=== PATIENT | female | born 1975 | race Caucasian/White ===

== ENCOUNTER → 2016-11-03 | Outpatient (CLI) | payer BC | LOC: LAB 11:38 | DX: E03.9 Hypothyroidism, unspecified (principal); M25.571 Pain in right ankle and joints of right foot ==

== ENCOUNTER → 2016-11-24 | Outpatient (CLI) | payer BC | LOC: MAMMO 13:26 | DX: Z12.31 Encounter for screening mammogram for malignant neoplasm of breast (principal) | CPT/HCPCS: G0202 ==

== ENCOUNTER → 2017-12-23 | Outpatient (CLI) | payer BC | LOC: LAB 09:56 | DX: E03.4 Atrophy of thyroid (acquired) (principal) ==

== ENCOUNTER → 2018-03-31 | Outpatient (CLI) | payer BC | LOC: LAB 15:25 | DX: E03.4 Atrophy of thyroid (acquired) (principal) ==

== ENCOUNTER → 2018-07-14 | Outpatient (CLI) | payer BC | LOC: LAB 14:37 | PROVIDERS: Physician Assistant | DX: E03.4 Atrophy of thyroid (acquired) (principal) ==

== ENCOUNTER → 2018-07-26 | Outpatient (CLI) | payer BC | LOC: MAMMO 09:15 | DX: Z12.31 Encounter for screening mammogram for malignant neoplasm of breast (principal) ==

== ENCOUNTER → 2019-04-02 | Outpatient (CLI) | payer BC ==
[2019-04-02 08:20] LABS: EOS # 0.1 (0.04-0.40); EOS % 1.5 % (1.0-5.0); HEMATOCRIT 40.9 % (37.0-47.0); HEMOGLOBIN 13.3 g/dL (12.5-16.0); LYMPH# 3.1 (1.50-4.00); MEAN CELL VOLUME 85 fl (78-100); MEAN CORPUSCULAR HEMOGLOBIN 28 pg (27-31); MEAN CORPUSCULAR HGB CONC 33 g/dL (33-37); MEAN PLATELET VOLUME 9.3 fl (7.4-10.4); MONO # 0.7 (0.20-0.80); NEU # 4.8 (1.40-6.50); PLATELET COUNT 399 K/mm3 (130-400); RED BLOOD COUNT 4.81 M/mm3 (4.10-5.30); RED CELL DISTRIBUTION WIDTH 13.4 % (11.5-14.5); WHITE BLOOD COUNT 8.7 K/mm3 (4.8-10.8)
[2019-04-02 09:18] LABS: ALBUMIN 3.6 g/dL (3.5-5.0); CALCIUM 9.3 mg/dL (8.3-10.5); POTASSIUM 4.3 mmol/L (3.5-5.1); TOTAL BILIRUBIN 0.2 mg/dL (0.2-1.2); TOTAL PROTEIN 7.1 g/dL (6.4-8.3)
== END ==
LOC: LAB 08:09
PROVIDERS: Physician Assistant
DX: Z00.00 Encounter for general adult medical examination without abnormal findings (principal); Z12.31 Encounter for screening mammogram for malignant neoplasm of breast; J01.80 Other acute sinusitis; B96.89 Other specified bacterial agents as the cause of diseases classified elsewhere; H66.91 Otitis media, unspecified, right ear; M25.512 Pain in left shoulder; M25.531 Pain in right wrist; E03.9 Hypothyroidism, unspecified

== ENCOUNTER → 2020-06-18 | Outpatient (CLI) | payer BC ==
[2020-06-18 10:43] LABS: EOS # 0.1 (0.04-0.40); EOS % 0.9 % (1.0-5.0); HEMATOCRIT 38.8 % (37.0-47.0); HEMOGLOBIN 12.8 g/dL (12.5-16.0); LYMPH# 2.7 (1.50-4.00); MEAN CELL VOLUME 87 fl (78-100); MEAN CORPUSCULAR HEMOGLOBIN 29 pg (27-31); MEAN CORPUSCULAR HGB CONC 33 g/dL (33-37); MEAN PLATELET VOLUME 9.6 fl (7.4-10.4); MONO # 0.7 (0.20-0.80); NEU # 4.2 (1.40-6.50); PLATELET COUNT 307 K/mm3 (130-400); RED BLOOD COUNT 4.45 M/mm3 (4.10-5.30); WHITE BLOOD COUNT 7.6 K/mm3 (4.8-10.8)
[2020-06-18 10:59] LABS: POTASSIUM 4.2 mmol/L (3.5-5.1)
[2020-06-18 11:00] LABS: CALCIUM 8.8 mg/dL (8.3-10.5)
[2020-06-18 11:04] LABS: TOTAL BILIRUBIN 0.4 mg/dL (0.2-1.2)
[2020-06-19 04:26] LABS: FOLLICLE STIMULATING HORMONE 2.2 mIU/mL (()); LUTENIZING HORMONE 1.2 mIU/mL (())
== END ==
LOC: LAB 10:30
PROVIDERS: Physician Assistant
DX: Z00.00 Encounter for general adult medical examination without abnormal findings (principal); Z12.31 Encounter for screening mammogram for malignant neoplasm of breast; N92.6 Irregular menstruation, unspecified; E03.9 Hypothyroidism, unspecified; J30.89 Other allergic rhinitis; E78.5 Hyperlipidemia, unspecified; J01.90 Acute sinusitis, unspecified

== ENCOUNTER → 2020-08-27 | Outpatient (CLI) | payer BC | LOC: MAMMO 10:45 | DX: Z12.31 Encounter for screening mammogram for malignant neoplasm of breast (principal) ==

== ENCOUNTER → 2021-09-03 | Outpatient (CLI) | payer BC | LOC: MAMMO 09:13 | DX: Z12.31 Encounter for screening mammogram for malignant neoplasm of breast (principal) ==

== ENCOUNTER → 2021-09-08 | Outpatient (CLI) | payer BC ==
[2021-09-08 10:00] LABS: BASO # 0.02 K/mm3 (0.02-0.10); EOS # 0.08 K/mm3 (0.04-0.40); EOS % 1.2 % (1.0-5.0); HEMATOCRIT 40.2 % (37.0-47.0); HEMOGLOBIN 13.1 g/dL (12.5-16.0); LYMPH# 2.26 K/mm3 (1.50-4.00); MEAN CELL VOLUME 88 fl (78-100); MEAN CORPUSCULAR HEMOGLOBIN 29 pg (27-31); MEAN CORPUSCULAR HGB CONC 33 g/dL (33-37); MEAN PLATELET VOLUME 9.4 fl (7.4-10.4); MONO # 0.49 K/mm3 (0.20-0.80); NEU # 4.09 K/mm3 (1.40-6.50); PLATELET COUNT 378 K/mm3 (130-400); RED BLOOD COUNT 4.59 M/mm3 (4.10-5.30)
[2021-09-08 10:17] LABS: CALCIUM 9.1 mg/dL (8.3-10.5)
[2021-09-08 10:49] LABS: ALBUMIN 3.8 g/dL (3.5-5.0)
[2021-09-08 10:52] LABS: TOTAL PROTEIN 6.9 g/dL (6.4-8.3)
[2021-09-08 10:54] LABS: TOTAL BILIRUBIN 0.3 mg/dL (0.2-1.2)
[2021-09-09 01:24] LABS: FOLLICLE STIMULATING HORMONE 10.1 mIU/mL (()); LUTENIZING HORMONE 3.7 mIU/mL (())
== END ==
LOC: LAB 09:34
PROVIDERS: Physician Assistant
DX: E78.5 Hyperlipidemia, unspecified (principal); E03.9 Hypothyroidism, unspecified; K90.9 Intestinal malabsorption, unspecified; R53.83 Other fatigue; M25.50 Pain in unspecified joint; N92.1 Excessive and frequent menstruation with irregular cycle

== ENCOUNTER → 2022-11-24 | Outpatient (CLI) | payer BC | LOC: RAD 11:06 | DX: M50.322 Other cervical disc degeneration at C5-C6 level (principal) ==

== ENCOUNTER 2022-12-15 08:00 | Outpatient (RCR) | payer BC | END 2023-01-14 | disposition home or self-care (01) | LOC: PT | DX: M54.2 Cervicalgia (principal) ==

== ENCOUNTER → 2023-11-02 | Outpatient (CLI) | payer BC ==
[2023-11-02 09:13] LABS: BASO # 0.01 K/mm3 (0.02-0.10); EOS # 0.06 K/mm3 (0.04-0.40); EOS % 0.8 % (1.0-5.0); HEMATOCRIT 40.9 % (37.0-47.0); HEMOGLOBIN 13.5 g/dL (12.5-16.0); LYMPH# 2.26 K/mm3 (1.50-4.00); MEAN CELL VOLUME 87 fl (78-100); MEAN CORPUSCULAR HEMOGLOBIN 29 pg (27-31); MEAN CORPUSCULAR HGB CONC 33 g/dL (33-37); MEAN PLATELET VOLUME 9.4 fl (7.4-10.4); MONO # 0.62 K/mm3 (0.20-0.80); NEU # 4.28 K/mm3 (1.40-6.50); PLATELET COUNT 325 K/mm3 (130-400); RED BLOOD COUNT 4.71 M/mm3 (4.10-5.30); RED CELL DISTRIBUTION WIDTH 12.5 % (11.5-14.5); WHITE BLOOD COUNT 7.2 K/mm3 (4.8-10.8)
[2023-11-02 09:21] LABS: ALBUMIN 4.2 g/dL (3.5-5.0)
[2023-11-02 09:22] LABS: CALCIUM 9.2 mg/dL (8.3-10.5)
[2023-11-02 09:23] LABS: TOTAL PROTEIN 7.1 g/dL (6.4-8.3)
[2023-11-02 09:25] LABS: TOTAL BILIRUBIN 0.6 mg/dL (0.2-1.2)
== END ==
LOC: LAB 08:59
PROVIDERS: Physician Assistant
DX: E03.9 Hypothyroidism, unspecified (principal); E78.5 Hyperlipidemia, unspecified; E66.9 Obesity, unspecified

== ENCOUNTER → 2024-01-04 | Outpatient (CLI) | payer BC | LOC: LAB 10:32 | DX: E03.9 Hypothyroidism, unspecified (principal) ==

== ENCOUNTER → 2024-02-15 | Outpatient (CLI) | payer BC | LOC: RAD 14:02 | DX: M50.122 Cervical disc disorder at C5-C6 level with radiculopathy (principal); M50.123 Cervical disc disorder at C6-C7 level with radiculopathy; M51.16 Intervertebral disc disorders with radiculopathy, lumbar region; M41.86 Other forms of scoliosis, lumbar region ==

== ENCOUNTER 2024-03-05 08:00 | Outpatient (RCR) | payer BC | END 2024-03-16 23:59 | LOC: PT 08:00 | DX: M54.50 Low back pain, unspecified (principal) ==

== ENCOUNTER → 2024-04-24 | Day surgery (SDC) | payer BC ==
[~2024-04-24] MED LIST: Iohexol 300 - 10 ML VIAL IV ONE; Lidocaine PF 2% (20 MG/ML) 2 ML VIAL IJ ONE
== END ==
LOC: MSO 13:26
DX: M54.12 Radiculopathy, cervical region (principal); M47.812 Spondylosis without myelopathy or radiculopathy, cervical region; E66.9 Obesity, unspecified; Z68.33 Body mass index [BMI] 33.0-33.9, adult
CPT/HCPCS: J1100; Q9967

== ENCOUNTER → 2024-05-15 | Day surgery (SDC) | payer BC ==
[~2024-05-15] MED LIST changes: +methylPREDNISolone acetate 80 MG/ML VIAL IJ ONE
== END ==
LOC: MSO 08:28
DX: M54.12 Radiculopathy, cervical region (principal); M47.812 Spondylosis without myelopathy or radiculopathy, cervical region; M54.50 Low back pain, unspecified; E03.9 Hypothyroidism, unspecified; E78.5 Hyperlipidemia, unspecified
CPT/HCPCS: J1010; Q9967

== ENCOUNTER → 2024-08-07 | Outpatient (CLI) | payer BC | LOC: LAB 09:24 | DX: E03.9 Hypothyroidism, unspecified (principal) ==

== ENCOUNTER → 2025-01-03 | Outpatient (CLI) | payer BC | LOC: MAMMO 11:13 | DX: Z12.31 Encounter for screening mammogram for malignant neoplasm of breast (principal) ==

== ENCOUNTER → 2025-01-08 | Outpatient (CLI) | payer BC ==
[2025-01-08 11:24] LABS: BASO # 0.01 K/mm3 (0.02-0.10); EOS # 0.04 K/mm3 (0.04-0.40); EOS % 0.6 % (1.0-5.0); HEMATOCRIT 42.7 % (37.0-47.0); HEMOGLOBIN 14.2 g/dL (12.5-16.0); LYMPH# 2.51 K/mm3 (1.50-4.00); MEAN CELL VOLUME 89 fl (78-100); MEAN CORPUSCULAR HEMOGLOBIN 30 pg (27-31); MEAN CORPUSCULAR HGB CONC 33 g/dL (33-37); MEAN PLATELET VOLUME 9.4 fl (7.4-10.4); MONO # 0.35 K/mm3 (0.20-0.80); NEU # 3.95 K/mm3 (1.40-6.50); PLATELET COUNT 334 K/mm3 (130-400); RED BLOOD COUNT 4.79 M/mm3 (4.10-5.30); RED CELL DISTRIBUTION WIDTH 12.2 % (11.5-14.5); WHITE BLOOD COUNT 6.9 K/mm3 (4.8-10.8)
[2025-01-08 11:36] LABS: ALBUMIN 4.1 g/dL (3.5-5.0)
[2025-01-08 11:37] LABS: CALCIUM 9.5 mg/dL (8.3-10.5)
[2025-01-08 11:38] LABS: TOTAL PROTEIN 7.5 g/dL (6.4-8.3)
[2025-01-08 11:40] LABS: TOTAL BILIRUBIN 0.5 mg/dL (0.2-1.2)
[2025-01-09 00:31] LABS: T3 TOTAL 132 ng/dL (35-193)
== END ==
LOC: LAB 10:21
PROVIDERS: Physician Assistant
DX: Z13.0 Encounter for screening for diseases of the blood and blood-forming organs and certain disorders involving the immune mechanism (principal); Z13.1 Encounter for screening for diabetes mellitus; Z13.21 Encounter for screening for nutritional disorder; E03.9 Hypothyroidism, unspecified; K90.9 Intestinal malabsorption, unspecified; R53.83 Other fatigue; E78.5 Hyperlipidemia, unspecified